=== PATIENT | male | born 1975 | race Caucasian/White ===

== ENCOUNTER 2017-04-28 13:59 | Emergency (ER) | payer OTHER ==
[~2017-04-28] VITALS: Ht 175.3 cm; Wt 111.1 kg
[2017-04-28 14:01] VITALS: Ht 175.3 cm; Wt 111.1 kg
[2017-04-28 15:00] VITALS: BP 119/71
== END 2017-04-28 15:00 | disposition home or self-care (01) ==
LOC: ED 13:59
DX: J45.901 Unspecified asthma with (acute) exacerbation (principal); J06.9 Acute upper respiratory infection, unspecified
CPT/HCPCS: J7644